=== PATIENT | female | born 1960 | race Caucasian/White ===

== ENCOUNTER → 2018-09-15 | Outpatient (CLI) | payer BC | LOC: HYPER 09-14 10:35 | DX: I87.323 Chronic venous hypertension (idiopathic) with inflammation of bilateral lower extremity (principal); S80.812A Abrasion, left lower leg, initial encounter; M19.90 Unspecified osteoarthritis, unspecified site; Z85.3 Personal history of malignant neoplasm of breast; X58.XXXA Exposure to other specified factors, initial encounter; Y93.89 Activity, other specified; Y92.89 Other specified places as the place of occurrence of the external cause; Y99.8 Other external cause status; R60.0 Localized edema ==

== ENCOUNTER → 2018-09-22 | Outpatient (CLI) | payer BC | LOC: HYPER 06:52 | DX: I87.332 Chronic venous hypertension (idiopathic) with ulcer and inflammation of left lower extremity (principal); L97.821 Non-pressure chronic ulcer of other part of left lower leg limited to breakdown of skin; R60.0 Localized edema; I87.321 Chronic venous hypertension (idiopathic) with inflammation of right lower extremity; I87.8 Other specified disorders of veins; M19.90 Unspecified osteoarthritis, unspecified site; Z85.3 Personal history of malignant neoplasm of breast ==

== ENCOUNTER → 2018-09-30 | Outpatient (CLI) | payer BC | LOC: HYPER 06:46 | DX: I87.332 Chronic venous hypertension (idiopathic) with ulcer and inflammation of left lower extremity (principal); L97.821 Non-pressure chronic ulcer of other part of left lower leg limited to breakdown of skin; I87.323 Chronic venous hypertension (idiopathic) with inflammation of bilateral lower extremity; I87.8 Other specified disorders of veins; M25.561 Pain in right knee; M19.90 Unspecified osteoarthritis, unspecified site; Z85.3 Personal history of malignant neoplasm of breast ==

== ENCOUNTER → 2018-10-06 | Outpatient (CLI) | payer BC | LOC: HYPER 06:40 | DX: I87.332 Chronic venous hypertension (idiopathic) with ulcer and inflammation of left lower extremity (principal); L97.821 Non-pressure chronic ulcer of other part of left lower leg limited to breakdown of skin; R60.0 Localized edema; M25.561 Pain in right knee; M19.90 Unspecified osteoarthritis, unspecified site; Z85.3 Personal history of malignant neoplasm of breast; Z96.651 Presence of right artificial knee joint; Z96.611 Presence of right artificial shoulder joint ==

== ENCOUNTER → 2018-10-13 | Outpatient (CLI) | payer BC | LOC: HYPER 06:40 | DX: I87.332 Chronic venous hypertension (idiopathic) with ulcer and inflammation of left lower extremity (principal); L97.822 Non-pressure chronic ulcer of other part of left lower leg with fat layer exposed; I87.323 Chronic venous hypertension (idiopathic) with inflammation of bilateral lower extremity; M25.561 Pain in right knee; M19.90 Unspecified osteoarthritis, unspecified site; R60.0 Localized edema; Z85.3 Personal history of malignant neoplasm of breast ==

== ENCOUNTER → 2018-10-22 | Outpatient (CLI) | payer BC | LOC: HYPER 06:45 | DX: I87.332 Chronic venous hypertension (idiopathic) with ulcer and inflammation of left lower extremity (principal); L97.821 Non-pressure chronic ulcer of other part of left lower leg limited to breakdown of skin; M25.561 Pain in right knee; M19.90 Unspecified osteoarthritis, unspecified site; R60.0 Localized edema; Z85.3 Personal history of malignant neoplasm of breast ==

== ENCOUNTER → 2018-10-29 | Outpatient (CLI) | payer BC | LOC: HYPER 08:09 | DX: I87.332 Chronic venous hypertension (idiopathic) with ulcer and inflammation of left lower extremity (principal); L97.821 Non-pressure chronic ulcer of other part of left lower leg limited to breakdown of skin; I87.323 Chronic venous hypertension (idiopathic) with inflammation of bilateral lower extremity; I87.2 Venous insufficiency (chronic) (peripheral); I87.8 Other specified disorders of veins; M19.90 Unspecified osteoarthritis, unspecified site; M25.561 Pain in right knee; R60.0 Localized edema; Z85.3 Personal history of malignant neoplasm of breast ==

== ENCOUNTER → 2018-11-05 | Outpatient (CLI) | payer BC | LOC: HYPER 06:14 | DX: I87.332 Chronic venous hypertension (idiopathic) with ulcer and inflammation of left lower extremity (principal); L97.821 Non-pressure chronic ulcer of other part of left lower leg limited to breakdown of skin; I87.321 Chronic venous hypertension (idiopathic) with inflammation of right lower extremity; M25.561 Pain in right knee; M19.90 Unspecified osteoarthritis, unspecified site; R60.0 Localized edema; Z85.3 Personal history of malignant neoplasm of breast ==